=== PATIENT | female | born 1975 | race Caucasian/White ===

== ENCOUNTER 2018-03-15 09:23 | Emergency (ER) ==
[2018-03-15 09:33] VITALS: BP 114/70; TEMP 98.3; BMI 38.3
[2018-03-15] MEDS ORDERED: DECADRON 4 MG/ML SDV IM STA (09:35)
[2018-03-15] MEDS ORDERED: LIDOCAINE HCL 1% SDV IM STA (09:35)
[2018-03-15] MEDS ORDERED: ROCEPHIN IM STA (09:35)
--- NOTE | 2018-03-15 09:36 | ED.PDOC ---
General ED Provider: Dr. MARI RIVERA-ER Chief Complaint: Bite Stated Complaint: i got bit Time Seen by Physician: 09:34 Mode of Arrival: Walk-In Information Source: Patient Exam Limitations: No limitations Primary Care Provider: MILI VILLEDA Nursing and Triage Documentation Reviewed and Agree: Yes Does patient meet sepsis criteria?: Yes If yes, has appropriate treatment been initiated?: No System Inflammatory Response Syndrome: Not Applicable Sepsis Protocol: For patient's 13 years and over: Temp is 96.8 and below OR 101 and greater Pulse >90 BPM Resp >20/minute Acutely Altered Mental Status Are patient's symptoms suggestive of a new infection, such as: -Pneumonia -Skin, Soft Tissue -Endocarditis -UTI -Bone, Joint Infection -Implantable Device -Acute Abdominal Infection -Wound Infection -Meningitis -Blood Stream Catheter Infection -Unknown Skin Complaint Exam - Skin/Soft Tissue Complaint/Exam Onset/Duration: 24 hrs Symptoms Are: Still present Timing: Constant Initial Severity: Mild Current Severity: Mild Location: right ear Character: Reports: Redness, Swelling, Raised Aggravating: Reports: None Alleviating: Reports: None Associated Signs and Symptoms: Reports: Tenderness Related History: Reports: Insect bite/sting Related Surgical History: Reports: None Recent Exposure to Others w/Similar Symptoms: No Skin Findings: Present: Erythema Joint Tenderness Present: No Differential Diagnoses: Cellulitis, Infection, Other Review of Systems - Review Of Systems Constitutional: Reports: No symptoms Eyes: Reports: No symptoms Ears, Nose, Mouth, Throat: Reports: Ear pain Respiratory: Reports: No symptoms Cardiac: Reports: No symptoms GI: Reports: No symptoms : Reports: No symptoms Musculoskeletal: Reports: No symptoms Skin: Reports: No symptoms Neurological: Reports: No symptoms Endocrine: Reports: No symptoms Hematologic/Lymphatic: Reports: No symptoms All Other Systems: Reviewed and Negative Past Medical History - Past Medical History Previously Healthy: Yes Endocrine: Reports: None Cardiovascular: Reports: None Respiratory: Reports: None Hematological: Reports: None Gastrointestinal: Reports: None Genitourinary: Reports: None Neuro/Psych: Reports: None Musculoskeletal: Reports: None Cancer: Reports: None Last Menstrual Period: 02/13/18 - Surgical History General Surgical History: Reports: Unknown - Family History Family History: Reports: Unknown - Social History Smoking Status: Never smoker Hx Substance Use: No Alcohol Screening: None - Immunizations Tetanus Shot up to Date: Yes Physical Exam - Physical Exam Appearance: Well-appearing, No pain distress, Well-nourished Eyes: TAO, EOMI, Conjunctiva clear ENT: Nose normal (right ear is edematous and erythematous), Oropharynx normal Neck: Supple Respiratory: Airway patent Cardiovascular: RRR GI/: Soft, Nontender, No masses, Bowel sounds normal, No Organomegaly Musculoskeletal: Normal strength, ROM intact, No edema, No calf tenderness Skin: Warm, Dry, Normal color Neurological: Sensation intact Psychiatric: Affect appropriate, Mood appropriate Critical Care Note - Critical Care Note Total Time (mins): 0 Course - Course Orders, Labs, Meds: Orders Category Date Time Status Ceftriaxone Sodium [Rocephin] MEDS 03/15/18 09:35 Stat 1 gm IM ONCE STA Dexamethasone 4 mg/ml Inj [Decadron 4 mg/ml Sdv] MEDS 03/15/18 09:35 Stat 4 mg IM ONCE STA Lidocaine HCl/Pf [Lidocaine HCl 1% Sdv] MEDS 03/15/18 09:35 Stat 2.1 ml IM ONCE STA Medications Discontinued Medications Generic Name Dose Route Start Last Admin Trade Name Sanjuanita PRN Reason Stop Dose Admin Ceftriaxone Sodium 1 gm 03/15/18 09:35 Rocephin IM 03/15/18 09:36 ONCE STA Dexamethasone Sodium Phosphate 4 mg 03/15/18 09:35 Decadron 4 Mg/Ml Sdv IM 03/15/18 09:36 ONCE STA Lidocaine HCl 2.1 ml 03/15/18 09:35 Lidocaine Hcl 1% Sdv IM 03/15/18 09:36 ONCE STA Vital Signs: Temp Pulse Resp BP Pulse Ox 03/15/18 09:23 98.3 F 97 H 16 114/70 98 Departure - Departure Time of Disposition: 09:37 Disposition: HOME SELF-CARE Discharge Problem: Spider bite Qualifiers: Encounter type: initial encounter Injury intent: accidental or unintentional Qualified Code(s): T63.301A - Toxic effect of unspecified spider venom, accidental (unintentional), initial encounter Instructions: Insect Bite or Sting (ED) Condition: Good Pt referred to PMD for follow-up: No IPMP verified?: No Additional Instructions: clindamycin 300mg tid x 7 [id number]--[id number] dose pack--cool compresses--f/u with pcp tomorrow for recheck Allergies/Adverse Reactions: Allergies promethazine [From Phenergan] Adverse Reaction (Verified 03/15/18 09:28) Home Medications: Ambulatory Orders Cyclobenzaprine HCl [Flexeril] 10 mg PO DAILY 03/15/18 Hydrocodone/Acetaminophen [Lorcet Plus 7.5-325 mg Tablet] 1 tab PO DAILY Zolpidem Tartrate [Ambien] 10 mg PO BEDTIME 03/15/18 Disposition Discussed With: Patient, Family
== END 2018-03-15 10:26 | disposition home or self-care (01) ==
LOC: ED 09:23
DX: T63.301A Toxic effect of unspecified spider venom, accidental (unintentional), initial encounter (principal)
CPT/HCPCS: 96372; 99283